=== PATIENT | female | born 1975 | race American Indian/Alaskan Native ===

== ENCOUNTER 2019-11-13 17:59 | Emergency (ER) | payer SELFPAY ==
[2019-11-13 18:18] VITALS: BP 137/93
[2019-11-13] MEDS ORDERED: HYDROcodone/ACETAMINOPHEN 7.5-325MG TAB PO ONE (20:18)
[2019-11-13] MEDS ORDERED: ONDANSETRON 4 MG ODT TAB PO ONE (20:19)
[2019-11-13] MEDS ORDERED: predniSONE 20 MG TAB PO ONE (20:19)
--- NOTE | 2019-11-13 20:24 | Emergency Department Report ---
ED Back Pain/Injury HPI - General Chief Complaint: Back Pain/Injury Stated Complaint: BACK/LEG PAIN Source: patient Limitations: No Limitations - History of Present Illness Initial Comments: Patient is a 44-year-old -[place] female with a history of chronic low back pain from herniated lumbar disc disease who presented to the ED with acute exacerbation of her chronic low back pain that radiates to the lower extremities bilaterally for the last 1 week after she slipped and fell while helping a friend move furniture about 1 month ago. Patient states that the pain has been worsening especially in the last 4 days. Patient states that she has been taking Robaxin, Aleve and gabapentin with no relief. Patient denies dizziness, syncope, chest pain, shortness of breath, abdominal pain, nausea, vomiting, hematuria, dysuria, numbness and tingling or weakness of lower extremities bilaterally, urinary or bowel incontinence and saddle paresthesia. MD Complaint: back pain, other (muscle spasm of back) -: Sudden, week(s) (1) Similar Symptoms Previously: Yes Place: home Radiation: left leg, right leg Severity: severe Severity scale (0 -10): 8 Quality: sharp, aching Consistency: constant Improves With: none Worsens With: movement, walking Context: while lifting, turning/twisting Associated Symptoms: denies other symptoms. denies: confusion, weakness, chest pain, numbness, difficulty walking, cough, difficulty urinating, diaphoresis, fever/chills, constipation, abdominal pain, nausea/vomiting, rash, seizure, syncope Treatments Prior to Arrival: NSAIDS, prescription analgesics - Related Data Previous Rx's Medication Instructions Recorded Last Taken Type Celecoxib [celeBREX] 200 mg PO Q12H #30 cap 11/13/19 Unknown Rx Prednisone [predniSONE 10 mg 10 mg PO .TAPER #21 tab.ds.pk 11/13/19 Unknown Rx (6-Day Pack, 21 Tabs)] traMADoL [Ultram] 50 mg PO Q6HR PRN #12 tablet 11/13/19 Unknown Rx Allergies Allergy/AdvReac Type Severity Reaction Status Date / Time ketorolac [From Toradol] Allergy Hives Verified 11/13/19 18:16 ED Review of Systems ROS: Stated complaint: BACK/LEG PAIN Other details as noted in HPI Constitutional: denies: chills, fever Eyes: denies: eye pain, eye discharge, vision change ENT: denies: ear pain, throat pain Respiratory: denies: cough, shortness of breath, wheezing Cardiovascular: denies: chest pain, palpitations Endocrine: no symptoms reported Gastrointestinal: denies: abdominal pain, nausea, diarrhea Genitourinary: denies: urgency, dysuria, discharge Musculoskeletal: back pain (Low back pain), arthralgia (Low back pain). denies: joint swelling Skin: denies: rash, lesions Neurological: denies: headache, weakness, paresthesias Psychiatric: denies: anxiety, depression Hematological/Lymphatic: denies: easy bleeding, easy bruising ED Past Medical Hx - Past Medical History Previous Medical History?: Yes Hx Hypertension: Yes - Surgical History Past Surgical History?: Yes Additional Surgical History: Gastric bypass - Social History Smoking Status: Current Every Day Smoker Substance Use Type: None - Medications Home Medications: Home Medications Medication Instructions Recorded Confirmed Last Taken Type Celecoxib [celeBREX] 200 mg PO Q12H #30 cap 11/13/19 Unknown Rx Prednisone [predniSONE 10 mg 10 mg PO .TAPER #21 tab.ds.pk 11/13/19 Unknown Rx (6-Day Pack, 21 Tabs)] traMADoL [Ultram] 50 mg PO Q6HR PRN #12 tablet 11/13/19 Unknown Rx ED Physical Exam - General Limitations: No Limitations General appearance: alert, in no apparent distress - Head Head exam: Present: atraumatic, normocephalic, normal inspection - Eye Eye exam: Present: normal appearance, PERRL, EOMI Pupils: Present: normal accommodation - ENT ENT exam: Present: normal exam, normal orophraynx, mucous membranes moist, TM's normal bilaterally, normal external ear exam - Neck Neck exam: Present: normal inspection, full ROM - Respiratory Respiratory exam: Present: normal lung sounds bilaterally. Absent: respiratory distress, wheezes, rhonchi, stridor, chest wall tenderness, accessory muscle use, prolonged expiratory - Cardiovascular Cardiovascular Exam: Present: regular rate, normal rhythm, normal heart sounds. Absent: systolic murmur, diastolic murmur, rubs, gallop - GI/Abdominal GI/Abdominal exam: Present: soft, normal bowel sounds. Absent: tenderness, guarding, rebound, hyperactive bowel sounds, hypoactive bowel sounds, organomegaly - Extremities Exam Extremities exam: Present: normal inspection, full ROM, normal capillary refill - Back Exam Back exam: Present: normal inspection, full ROM, tenderness (Palpable lumbosacral paraspinal musculoskeletal tenderness), muscle spasm, paraspinal tenderness - Neurological Exam Neurological exam: Present: alert, oriented X3, CN II-XII intact, normal gait, reflexes normal - Psychiatric Psychiatric exam: Present: normal affect, normal mood - Skin Skin exam: Present: warm, dry, intact, normal color. Absent: rash ED Course Vital Signs 11/13/19 18:16 Temperature 98.3 F Pulse Rate 84 Respiratory 16 Rate Blood Pressure 137/93 O2 Sat by Pulse 100 Oximetry ED Medical Decision Making - Medical Decision Making This is a 44-year-old female with a history of chronic low back pain who presents to the ED with c/o acute onset persistent severe low back pain that radiates to the lower extremities bilaterally for the last 1 week, worse in the last 4 days despite taking gabapentin, Aleve and Robaxin at home. In the ED, patient is alert and oriented x3 and is not in distress. The vital signs are stable. Patient was treated for pain in the ED and discharged home on medications advised to continue taking her previously prescribed medication and to follow-up with her primary care physician and her certified medical coding specialist as previously scheduled. Patient was advised return to the ED immediately if symptoms get worse. - Differential Diagnosis Muscle spasms; Lumbar disc disease; Muscle strain; osteoarthritis Critical care attestation.: If time is entered above; I have spent that time in minutes in the direct care of this critically ill patient, excluding procedure time. ED Disposition Clinical Impression: Spasm of muscle of lower back, Acute exacerbation of chronic low back pain, Lumbar disc herniation, Strain of muscle, fascia and tendon of lower back, initial encounter Disposition: - TO HOME OR SELFCARE Is pt being admited?: No Does the pt Need Aspirin: No Condition: Stable Instructions: Muscle Strain (ED), Chronic Back Pain (ED), Lumbar Disc Herniation (ED), Degenerative Disc Disease (ED) Additional Instructions: Take medication with food, drink plenty of fluids and follow-up with your primary care physician in 7 to 10 days for reevaluation. Return to the ED immediately if symptoms get worse. Prescriptions: Celecoxib [celeBREX] 200 mg PO Q12H #30 cap Prednisone [predniSONE 10 mg (6-Day Pack, 21 Tabs)] 10 mg PO .TAPER #21 tab.ds.pk traMADoL [Ultram] 50 mg PO Q6HR PRN #12 tablet PRN Reason: Pain Referrals: DALLAS YEAGER MD [Staff Physician] - 7-10 days Time of Disposition: 20:31 Print Language: ITALIAN
== END 2019-11-13 21:27 | disposition home or self-care (01) ==
LOC: ED 17:59
DX: S39.012A Strain of muscle, fascia and tendon of lower back, initial encounter (principal); M51.26 Other intervertebral disc displacement, lumbar region; M62.830 Muscle spasm of back; I10 Essential (primary) hypertension; F17.200 Nicotine dependence, unspecified, uncomplicated; Z79.899 Other long term (current) drug therapy; Z88.8 Allergy status to other drugs, medicaments and biological substances; Z98.890 Other specified postprocedural states; X58.XXXA Exposure to other specified factors, initial encounter; Y93.89 Activity, other specified; Y92.89 Other specified places as the place of occurrence of the external cause; Y99.8 Other external cause status
CPT/HCPCS: 99282; J7512; Q0162